=== PATIENT | female | born 1930 | race Caucasian/White ===

== ENCOUNTER 2017-11-25 10:50 | Emergency (ER) | payer OTHER, BC ==
[~2017-11-25] VITALS: Ht 152.4 cm; Wt 83.1 kg
[~2017-11-25 10:50] MED LIST: ASPIR-LOW81 MG PO; Antivert PO; CLONIDINE HCL0.1 MG PO; CYANOCOBAL1000 MCG/2 IM; Catapres PO; Coumadin Daily Dose PO; FOLIC ACID0.8 MG PO; Feosol PO; Fish Oil PO; Folvite PO; HUMULIN N300 UNIT/3 SC; IRON160 M1 PO; LEVOTHYROXINE100 MCG PO; LISINOPRIL-HCT1 EAC3 PO; Levothroid,Synthroid PO; MERCAPTOPURINE50 MG PO; METOPROLOL SUCC50 MG PO; Move Free Advanced T PO; NAPROSYN500 MG PO; NON-ASPIRIN PA500 MG PO; NOVOLIN N100 UNITS/ SC; PURENETHOL50 MG PO; PriLOSEC PO; SIMVASTATIN20 MG PO; Toprol XL PO; Tylenol Extra Streng PO; WARFARIN SODIUM6 MG PO; Zestoretic,Prinzide PO; Zocor PO
[2017-11-25 10:58] VITALS: BP 194/47
== END 2017-11-25 15:02 | disposition left against medical advice (07) ==
LOC: EME 10:50
DX: M79.605 Pain in left leg (principal); Z53.21 Procedure and treatment not carried out due to patient leaving prior to being seen by health care provider